=== PATIENT | male | born 1985 | race Caucasian/White ===

== ENCOUNTER 2021-10-14 12:12 | Emergency (ER) | payer BC, OTHER ==
[2021-10-14 12:37] VITALS: BP 132/77; PULSE 76; TEMP 98.3; BMI 34.9
[2021-10-14] MEDS ORDERED: METHOCARBAMOL 500 MG TABLET PO ONE (13:09)
[2021-10-14] MEDS ORDERED: ACETAMINOPHEN 500 MG TABLET (FP) PO ONE (13:09)
[2021-10-14] MEDS ORDERED: FAMOTIDINE 20 MG TABLET ONE (13:16)
[2021-10-14] MEDS ORDERED: MAG HYDROX/AL HYDROX/SIMETH 30 ML UNIT-DOSE CUP ONE (13:17)
[2021-10-14 14:01] LABS: URINE APPEARANCE CLEAR; URINE BILIRUBIN NEGATIVE (NEGATIVE); URINE COLOR YELLOW; URINE GLUCOSE (UA) NEGATIVE (NEGATIVE); URINE KETONE NEGATIVE (NEGATIVE); URINE LEUK ESTERASE NEGATIVE (NEGATIVE); URINE NITRITE NEGATIVE (NEGATIVE); URINE PROTEIN TRACE (NEGATIVE); URINE UROBILINOGEN 0.2 mg/dL (0.2-1.0)
== END 2021-10-14 15:41 | disposition home or self-care (01) ==
LOC: JER 12:12
DX: R10.9 Unspecified abdominal pain (principal)
CPT/HCPCS: 74176-TC; 81003; 87086; 99284-25

== ENCOUNTER 2021-11-26 16:44 | Emergency (ER) | payer BC, OTHER ==
[2021-11-26 17:00] VITALS: BP 127/79; PULSE 99; TEMP 98.2; BMI 34.9
[2021-11-26] MEDS ORDERED: ACETAMINOPHEN 325 MG TABLET (FP) PO ONE (18:38)
[2021-11-26] MEDS ORDERED: KETOROLAC TROMETHAMINE 30 MG/1 ML VIAL IM ONE (18:38)
[2021-11-26] MEDS ORDERED: ACETAMINOPHEN 500 MG TABLET (FP) ONE (18:46)
[2021-11-26] MEDS ORDERED: KETOROLAC TROMETHAMINE 30 MG/1 ML VIAL ONE (18:46)
== END 2021-11-26 19:38 | disposition home or self-care (01) ==
LOC: JERFT 16:44 → JER 16:44 → JERFT 19:38
PROC: 3E0233Z Introduction of Anti-inflammatory into Muscle, Percutaneous Approach (ICD-10-PCS; principal; 2021-11-26)
DX: S62.657A Nondisplaced fracture of middle phalanx of left little finger, initial encounter for closed fracture (principal); W01.0XXA Fall on same level from slipping, tripping and stumbling without subsequent striking against object, initial encounter
CPT/HCPCS: 73140-TC-LT-FY; 73610-TC-LT-FY; 99284-25